=== PATIENT | female | born 1995 | race Caucasian/White ===

== ENCOUNTER 2019-11-29 15:17 | Emergency (ER) | payer OTHER ==
[~2019-11-29] VITALS: Ht 172.7 cm; Wt 66.2 kg
[2019-11-29 15:32] VITALS: BP_SYST 134
[2019-11-29] MEDS ORDERED: DIPH-TET-PERTUS Vaccine 0.5 ML VIAL (ADACEL) I.M. ONE (17:00)
--- NOTE | 2019-11-29 17:00 | NUR ---
Placed in ER hallway for evaluation
--- NOTE | 2019-11-29 17:05 | NUR ---
Patient reports she stepped on push pin at work sent from work for [employer]. Denies any pain. No other complaints/injuries per patient or as noted. Will continue to monitor.
--- NOTE | 2019-11-29 17:10 | NUR ---
ER Dr. Joshi at bedside examining patient.
--- NOTE | 2019-11-29 17:17 | NUR ---
Patient administered TDAP vaccine. Patient tolerated well.
[2019-11-29] MEDS ORDERED: BACITRACIN 1 GM OINT TP ONE (17:30)
[2019-11-29 17:33] VITALS: BP_SYST 126
--- NOTE | 2019-11-29 17:33 | NUR ---
Patient given written and verbal discharge instructions and verbalizes understanding. ER MD discussed with patient the results and treatment provided. Patient in stable condition. ID arm band removed. No Rx given. Patient educated on pain management and to follow up with PMD. Pain Scale 0/10 Opportunity for questions provided and answered. Medication side effect fact sheet provided.
== END 2019-11-29 17:33 | disposition home or self-care (01) ==
LOC: SED 15:17
DX: S91.332A Puncture wound without foreign body, left foot, initial encounter (principal); Z88.0 Allergy status to penicillin; W22.8XXA Striking against or struck by other objects, initial encounter; Y93.89 Activity, other specified; Y92.89 Other specified places as the place of occurrence of the external cause; Y99.8 Other external cause status
CPT/HCPCS: 90715; 99283